=== PATIENT | female | born 1995 | race Caucasian/White ===

== ENCOUNTER 2017-03-06 11:33 | Emergency (ER) | payer OTHER ==
[2017-03-06 11:53] VITALS: BP 129/81; PULSE 82; RESP 18; TEMP 98.2; O2SAT 97
== END 2017-03-06 13:30 | disposition left against medical advice (07) ==
DX: Z53.21 Procedure and treatment not carried out due to patient leaving prior to being seen by health care provider (principal)

== ENCOUNTER 2017-03-06 13:56 | Emergency (ER) | payer OTHER ==
[2017-03-06 14:25] VITALS: O2SAT 98
[2017-03-06] MEDS ORDERED: ACETAMINOPHEN 500 MG TAB PO ONE (14:34)
--- NOTE | 2017-03-06 15:13 | EDPHY ---
H & P Time Seen by Provider: 03/06/17 14:22 HPI/ROS: This patient sustained an injury to her right foot mandible while the dog park yesterday afternoon when all large dog, excited to meet her jumped up toward her while she was bending down in slammed into the right mandible area. She reports that she has right-sided TMJ pain of moderate intensity that increases 8 /10 if she attempts to chew. She reports this pain extends to the angle of the mandible on the right side. She states that she prior to this accident has chronic TMJ pain of lesser intensity. She has associated tinnitus in the ear and generalized headache peak intensity 7/10. Her father drove her in by private vehicle for evaluation of her symptoms. She is concerned that she may have a fracture in her jaw. She took 400 mg of ibuprofen 9:45 a.m. the day of evaluation with mild improvement and notes no other exacerbating or alleviating factors. ROS: Neuro: She was not dazed from the injury. No LOC. No confusion. No focal numbness tingling weakness. No vision change. Musculoskeletal: No midline neck or back pain. GI: Mild nausea but no vomiting. 7 point ROS is otherwise negative. 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 She has tried a mouthpiece for this for potential bruxism but reported that it did seem to help. 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 HEENT: Is no external evidence of trauma on exam. No cranial tenderness other than mandible findings detailed below. Nose atraumatic. Ears: Clear bilaterally with no hemotympanum. Oropharynx: No dental trauma or malocclusion. No intraoral lacerations. The patient has right mandible tenderness perhaps slight swelling on the right side with no malocclusion. She also has tenderness the right TMJ with no overt crepitance. No ecchymosis. Eyes: Pupils are equal and reactive to light. Extraocular motions are intact. Optic fundi: Clear with no papilledema or hemorrhage. Neck: Trachea is midline with no stridor. The patient has no midline neck tenderness and retains a full range of motion without increase in pain. Lungs: Clear to auscultation bilaterally Cardiac: Regular rate and rhythm no murmur gallop or rub. Chest: Nontender. Abdomen: Soft nontender no organomegaly Back: Nontender Extremities: Atraumatic Neuro: GCS of 15. Cranial nerves II through XII intact. 2 out of 3 five- minute memory is intact. Cerebellar exam is normal as judged by symmetric rapid hand movements bilaterally. No pronator drift. No sensory or motor deficits are appreciated. Initial differential diagnosis: Mandible contusion, mandible fracture, TMJ strain Constitutional: Initial Vital Signs Temperature (C) 36.7 C 03/06/17 14:22 Heart Rate 71 03/06/17 14:22 Respiratory Rate 18 03/06/17 14:22 Blood Pressure 143/81 H 03/06/17 14:22 O2 Sat (%) 98 03/06/17 14:22 O2 Delivery Mode Room Air Allergies/Adverse Reactions: Sulfa (Sulfonamide Antibiotics) Allergy (Intermediate, Verified 03/06/17 14:20) Hives amoxicillin [Amoxicillin] Allergy (Unknown, Verified 03/06/17 14:20) as kid Home Medications: Medication Instructions Recorded Control 03/06/17 Citalopram [CeleXA] 20 mg PO 03/06/17 Methocarbamol [Robaxin 750 mg (*)] 750 - 1,500 mg PO QID PRN #20 tab 03/06/17 MDM/Departure - MDM Diagnostics: Mandible x-rays: Negative for fracture by my interpretation Imaging: I viewed and interpreted images myself Medications Given: Discontinued Medications Acetaminophen (Tylenol) 1,000 mg PO EDNOW ONE Stop: 03/06/17 14:35 Last Admin: 03/06/17 14:44 Dose: 1,000 mg ED Course/Re-evaluation: Discussion: Patient presents with findings of mandibular contusion-rule out fracture with x- ray, it and TMJ sprain/strain from blow to the right mandible yesterday. She is treated here with Tylenol. Will treat her with methocarbamol muscle relaxant in addition for pain if needed to the minimal suggest a soft diet and mouthpiece. Suggest that she follow up with ENT if she has any significant ongoing symptoms that persist beyond the next 5-7 days despite the treatment plan of ice, ibuprofen, Tylenol and methocarbamol. - Depart Disposition: Home, Routine, Self-Care Clinical Impression: Sprain and strain of temporomandibular joint Minor head injury without loss of consciousness Qualifiers: Encounter type: initial encounter Qualified Code(s): S09.90XA - Unspecified injury of head, initial encounter Condition: Good Instructions: Head Injury (ED), Temporomandibular Disorder (ED) Additional Instructions: Diagnoses: 1. Minor head injury 2. TMJ strain/sprain Plan: Ice 20 minutes at a time 3 times a day to the affected area. Ibuprofen and Tylenol for discomfort as needed Methocarbamol muscle relaxant in addition if needed Soft diet until her symptoms improved Return if he develops unbearable headache, vomiting more than twice, confusion or other concerns. Follow up with primary care physician for any ongoing symptoms despite the treatment plan or with the ENT physician listed below. Prescriptions: Methocarbamol [Robaxin 750 mg (*)] 750 - 1,500 mg PO QID PRN #20 tab PRN Reason: Muscle Spasms Referrals: Antonio Hu MD [Medical Doctor] - As per Instructions
[2017-03-06 15:25] VITALS: BP 126/85; PULSE 68; RESP 20; TEMP 98.2
== END 2017-03-06 15:25 | disposition home or self-care (01) ==
LOC: CED 13:56
DX: S03.40XA Sprain of jaw, unspecified side, initial encounter (principal); W23.0XXA Caught, crushed, jammed, or pinched between moving objects, initial encounter
CPT/HCPCS: 70110-PO

== ENCOUNTER 2018-03-15 14:28 | Emergency (ER) | payer OTHER ==
[2018-03-15] MEDS ORDERED: KETOROLAC 30 MG/1 ML SDV IVP ONE (14:44)
[2018-03-15] MEDS ORDERED: ONDANSETRON 4 MG/2 ML VIAL IVP ONE (14:45)
[2018-03-15] MEDS ORDERED: NS 1,000 ML IV ONE (14:45)
--- NOTE | 2018-03-15 14:45 | EDPHY ---
H & P Stated Complaint: PELVIC PAIN/HAD IUD PLACED 3 WKS AGO Time Seen by Provider: 03/15/18 14:39 HPI/ROS: CHIEF COMPLAINT: Pelvic cramping HISTORY OF PRESENT ILLNESS: The patient is a 22-year-old female who had an IUD placed by her primary 3 weeks ago. However since then she has had pelvic cramping that is intensified over the last day or two. No bleeding. No discharge. She has continued to have unprotected sex with her fiance. She had a negative test before it was placed. No urinary symptoms. Mild nausea with the pain but no vomiting. No diarrhea. No fever. She is sexually active with her fiance and no on else. No discharge. No concern for STD. Severity: Severe Modifying factors: Improved with Tylenol REVIEW OF SYSTEMS: Constitutional: denies: chills, fever, recent illness, recent injury EENTM: denies: blurred vision, double vision, nose congestion Respiratory: denies: cough, shortness of breath Cardiac: denies: chest pain, irregular heart rate, lightheadedness, palpitations Gastrointestinal/Abdominal: denies: abdominal pain, diarrhea, nausea, vomiting, blood streaked stools Genitourinary: See HPI Musculoskeletal: denies: joint pain, muscle pain Skin: denies: lesions, rash, jaundice, bruising Neurological: denies: headache, numbness, paresthesia, tingling, dizziness, weakness Hematologic/Lymphatic: denies: blood clots, easy bleeding, easy bruising Immunologic/allergic: denies: HIV/AIDS, transplant 10 systems reviewed and negative except as noted EXAM: GENERAL: Well-appearing, well-nourished and in no acute distress. HEAD: Atraumatic, normocephalic. EYES: Pupils equal round and reactive to light, extraocular movements intact, sclera anicteric, conjunctiva are normal. ENT: TMs normal, nares patent, oropharynx clear without exudates. Moist mucous membranes. NECK: Normal range of motion, supple without lymphadenopathy or JVD. LUNGS: Breath sounds clear to auscultation bilaterally and equal. No wheezes rales or rhonchi. HEART: Regular rate and rhythm without murmurs, rubs or gallops. ABDOMEN: Soft, nontender, normoactive bowel sounds. No guarding, no rebound. No masses appreciated. BACK: No CVA tenderness, no spinal tenderness, step-offs or deformities EXTREMITIES: Normal range of motion, no pitting or edema. No clubbing or cyanosis. NEUROLOGICAL: Cranial nerves II through XII grossly intact. Normal speech, normal gait. 5/5 strength, normal movement in all extremities, normal sensation , normal reflexes PSYCH: Normal mood, normal affect. SKIN: Warm, dry, normal turgor, no visible rashes or lesions. Source: Patient Exam Limitations: No limitations - Personal History LMP (Females 10-55): IUD In Place Current Tetanus Diphtheria and Acellular Pertussis (TDAP): Yes - Medical/Surgical History Hx Asthma: Yes Hx Chronic Respiratory Disease: No Hx Diabetes: No Hx Cardiac Disease: No Hx Renal Disease: No Hx Cirrhosis: No Hx Alcoholism: No Hx HIV/AIDS: No Hx Splenectomy or Spleen Trauma: No Other PMH: wisdom tooth extraction; PNA, asthma. anxiety, TMJ - Family History Significant Family History: No pertinent family hx - Social History Smoking Status: Never smoked Alcohol Use: Sober Drug Use: None Constitutional: Initial Vital Signs Temperature (C) 37 C 03/15/18 14:31 Heart Rate 96 03/15/18 14:31 Respiratory Rate 18 03/15/18 14:31 Blood Pressure 156/87 H 03/15/18 14:31 O2 Sat (%) 94 03/15/18 14:31 O2 Delivery Mode Room Air Allergies/Adverse Reactions: Sulfa (Sulfonamide Antibiotics) Allergy (Intermediate, Verified 03/15/18 14:29) Hives amoxicillin [Amoxicillin] Allergy (Unknown, Verified 03/15/18 14:29) as kid latex Allergy (Verified 03/15/18 14:30) Home Medications: Medication Instructions Recorded MIRENA 03/15/18 Medical Decision Making - Diagnostics Imaging Results: Imaging Impressions Pelvic/Renal Ultrasound 03/15/18 14:44 Impression: 1. IUD appears in good position. 2. Minimal free fluid in the pelvis. 2. No ovarian torsion. Findings and recommendations discussed with Emergency Department physician, ANGEL WATKINS at 15:39 hour, 03/15/2018. Final report concurs with initial preliminary interpretation. Imaging: Discussed imaging studies w/ machine scallop cutter Radiologist ED Course/Re-evaluation: Pelvic ultrasound and lab work is reassuring. Her abdominal exam is benign. She does have red white cells in her urine but denies having any dysuria or frequency etc. She thinks that she may have some cross over from her vaginal spotting which she states just started today. This would make sense with her increase in pelvic pain and cramping with the IUD now in place. We discussed options. Patient declines pelvic exam. She is not concerned for STD. She will follow up with her primary on Saturday. I did offer to prescribe her antibiotics in case she develops urinary symptoms but she declined. Differential Diagnosis: Partial list of the Differential diagnosis considered include but were not limited to; menses, IUD displacement, urinary tract infection, STD and although unlikely based on the history and physical exam, I also considered ectopic, ovarian cyst, appendicitis, hernia. I discussed these differential diagnoses and the plan with the patient as well as the usual and expected course. The patient understands that the diagnosis is provisional and that in medicine we are not always correct and that further workup is often warranted. Usual and customary warnings were given. All of the patient's questions were answered. The patient was instructed to return to the emergency department should the symptoms at all worsen or return, otherwise to followup with the physician as we discussed. - Data Points Laboratory Results: Laboratory Results 03/15/18 15:12 03/15/18 15:12 03/15/18 03/15/18 03/15/18 15:12 15:12 15:12 WBC 12.33 10^3/uL H 10^3/uL (3.80-9.50) RBC 5.29 10^6/uL 10^6/uL (4.18-5.33) Hgb 15.6 g/dL g/dL (12.6-16.3) Hct 44.8 % % (38.0-47.0) MCV 84.7 fL fL (81.5-99.8) MCH 29.5 pg pg (27.9-34.1) MCHC 34.8 g/dL g/dL (32.4-36.7) RDW 11.9 % % (11.5-15.2) Plt Count 262 10^3/uL 10^3/uL (150-400) MPV 9.5 fL fL (8.7-11.7) Neut % (Auto) 61.5 % % (39.3-74.2) Lymph % (Auto) 29.1 % % (15.0-45.0) [place] % (Auto) 5.0 % % (4.5-13.0) Eos % (Auto) 3.6 % % (0.6-7.6) Baso % (Auto) 0.6 % % (0.3-1.7) Nucleat RBC Rel Count 0.0 % % (0.0-0.2) Absolute Neuts (auto) 7.58 10^3/uL H 10^3/uL (1.70-6.50) Absolute Lymphs (auto) 3.59 10^3/uL H 10^3/uL (1.00-3.00) Absolute Monos (auto) 0.62 10^3/uL 10^3/uL (0.30-0.80) Absolute Eos (auto) 0.44 10^3/uL H 10^3/uL (0.03-0.40) Absolute Basos (auto) 0.07 10^3/uL 10^3/uL (0.02-0.10) Absolute Nucleated RBC 0.00 10^3/uL 10^3/uL (0-0.01) Immature Gran % 0.2 % % (0.0-1.1) Immature Gran # 0.03 10^3/uL 10^3/uL (0.00-0.10) Sodium 140 mEq/L mEq/L (135-145) Potassium 3.8 mEq/L mEq/L (3.3-5.0) Chloride 103 mEq/L mEq/L (97-110) Carbon Dioxide 27 mEq/l mEq/l (22-31) Anion Gap 10 mEq/L mEq/L (6-14) BUN 12 mg/dL mg/dL (7-23) Creatinine 0.6 mg/dL mg/dL (0.6-1.0) Estimated GFR > 60 Glucose 89 mg/dL mg/dL (70-100) Calcium 9.7 mg/dL mg/dL (8.5-10.4) Total Bilirubin 0.4 mg/dL mg/dL (0.1-1.4) Conjugated Bilirubin 0.1 mg/dL mg/dL (0.0-0.5) Unconjugated Bilirubin 0.3 mg/dL mg/dL (0.0-1.1) AST 23 IU/L IU/L (14-46) ALT 24 IU/L IU/L (9-52) Alkaline Phosphatase 92 IU/L IU/L (38-126) Total Protein 8.1 g/dL g/dL (6.3-8.2) Albumin 4.9 g/dL g/dL (3.5-5.0) Lipase 158 IU/L IU/L (23-300) Beta HCG, Qual NEGATIVE Urine Color Urine Appearance Urine pH Ur Specific [place] Urine Protein Urine Ketones Urine Blood Urine Nitrate Urine Bilirubin Urine Urobilinogen Ur Leukocyte Esterase Urine RBC Urine WBC Ur Epithelial Cells Urine Mucus Urine Glucose 03/15/18 15:00 WBC RBC Hgb Hct MCV MCH MCHC RDW Plt Count MPV Neut % (Auto) Lymph % (Auto) [place] % (Auto) Eos % (Auto) Baso % (Auto) Nucleat RBC Rel Count Absolute Neuts (auto) Absolute Lymphs (auto) Absolute Monos (auto) Absolute Eos (auto) Absolute Basos (auto) Absolute Nucleated RBC Immature Gran % Immature Gran # Sodium Potassium Chloride Carbon Dioxide Anion Gap BUN Creatinine Estimated GFR Glucose Calcium Total Bilirubin Conjugated Bilirubin Unconjugated Bilirubin AST ALT Alkaline Phosphatase Total Protein Albumin Lipase Beta HCG, Qual Urine Color YELLOW Urine Appearance HAZY Urine pH 7.0 (5.0-7.5) Ur Specific [place] 1.009 (1.002-1.030) Urine Protein 2+ H (NEGATIVE) Urine Ketones NEGATIVE (NEGATIVE) Urine Blood 3+ H (NEGATIVE) Urine Nitrate NEGATIVE (NEGATIVE) Urine Bilirubin NEGATIVE (NEGATIVE) Urine Urobilinogen NEGATIVE EU EU (0.2-1.0) Ur Leukocyte Esterase 1+ H (NEGATIVE) Urine RBC 10-15 /hpf H /hpf (0-3) Urine WBC 15-25 /hpf H /hpf (0-3) Ur Epithelial Cells TRACE /lpf /lpf (NONE-1+) Urine Mucus TRACE /lpf /lpf (NONE-1+) Urine Glucose NEGATIVE (NEGATIVE) Medications Given: Discontinued Medications Sodium Chloride (Ns) 1,000 mls @ 0 mls/hr IV EDNOW ONE; Wide Open PRN Reason: Protocol Stop: 03/15/18 14:46 Last Admin: 03/15/18 15:12 Dose: 1,000 mls Ketorolac Tromethamine (Toradol) 15 mg IVP EDNOW ONE Stop: 03/15/18 14:45 Last Admin: 03/15/18 15:11 Dose: 15 mg Ondansetron HCl (Zofran) 4 mg IVP EDNOW ONE Stop: 03/15/18 14:46 Last Admin: 03/15/18 15:10 Dose: 4 mg Departure - Departure Disposition: Home, Routine, Self-Care Clinical Impression: IUD (intrauterine device) in place Condition: Fair Instructions: Pelvic Pain (ED) Additional Instructions: Continue to take Tylenol or ibuprofen for pain. Follow up with doctor as previously arranged. Referrals: ODILIA BRADSHAW [Other] - 2-3 days, if not improved
[2018-03-15 15:24] LABS: PLATELET COUNT 262 10^3/uL (150-400)
[2018-03-15 15:55] VITALS: BP 143/84
== END 2018-03-15 15:54 | disposition home or self-care (01) ==
DX: R10.2 Pelvic and perineal pain (principal); E86.9 Volume depletion, unspecified; Z97.5 Presence of (intrauterine) contraceptive device
CPT/HCPCS: 96374; J1885; J2405

== ENCOUNTER 2018-05-16 06:40 | Emergency (ER) | payer OTHER ==
[2018-05-16] MEDS ORDERED: SKIN ADHESIVE (DERMABOND) 1 EACH TP ONE (07:05)
--- NOTE | 2018-05-16 07:05 | EDPHY ---
H & P Stated Complaint: Lac L index finger, Time Seen by Provider: 05/16/18 06:52 HPI/ROS: CHIEF COMPLAINT: Left index finger laceration HISTORY OF PRESENT ILLNESS: This is an immunocompetent 23-year-old female who cut the tip of her left index finger while using a bread knife earlier this morning. She has had difficulty controlling the bleeding, prompting her visit to the emergency department. She denies numbness or weakness. Her tetanus is current. REVIEW OF SYSTEMS: A ten system review of systems was performed and is negative with the exception of the items mentioned in the HPI. Recent cold symptoms Past medical history: Noncontributory Social history: She works at [employer] on [address] . No tobacco use. General Appearance: Alert. Vital signs reviewed. Focused exam performed. Respiratory: Lungs are clear to auscultation; no wheezes, rales, or rhonchi. Cardiovascular: Regular rate and rhythm; no murmur, rub, or gallop. Skin: Warm and dry, no rashes on exposed skin, normal color. Extremities: Crescentic shaped laceration distal left index finger laterally adjacent to the nail. No active bleeding at the time of my evaluation. Sensation intact to light touch over this finger. Full active range of motion at the MCP, PIP, and DI P of this finger. Pulse: 2 +left radial pulse. Neurological: Alert and oriented. Moving all four extremities easily and equally. Psychiatric: Normal affect. - Personal History LMP (Females 10-55): IUD In Place Current Tetanus Diphtheria and Acellular Pertussis (TDAP): Yes Tetanus Vaccine Date: 2016 - Medical/Surgical History Hx Asthma: Yes Hx Chronic Respiratory Disease: No Hx Diabetes: No Hx Cardiac Disease: No Hx Renal Disease: No Hx Cirrhosis: No Hx Alcoholism: No Hx HIV/AIDS: No Hx Splenectomy or Spleen Trauma: No Other PMH: wisdom tooth extraction; PNA, asthma. anxiety, TMJ - Social History Smoking Status: Never smoked Constitutional: Initial Vital Signs Temperature (C) 36.8 C 05/16/18 06:42 Heart Rate 106 H 05/16/18 06:42 Respiratory Rate 19 05/16/18 06:42 Blood Pressure 138/96 H 05/16/18 06:42 O2 Sat (%) 95 05/16/18 06:42 O2 Delivery Mode Room Air Allergies/Adverse Reactions: Sulfa (Sulfonamide Antibiotics) Allergy (Intermediate, Verified 05/16/18 06:42) Hives amoxicillin [Amoxicillin] Allergy (Unknown, Verified 05/16/18 06:42) as kid latex Allergy (Verified 05/16/18 06:42) Home Medications: Medication Instructions Recorded SHAUNA 03/15/18 Medical Decision Making Procedures: Procedure: Laceration repair. Verbal consent was obtained from the patient. The 3/4 cm crescentic laceration on the distal left index finger was not anesthetized. The wound was cleaned and explored. There were no deep structures involved. No tendon injury was identified. No nail injury. The wound was repaired with skin glue . The wound repair was simple . The procedure was performed by emergency department staff. ED Course/Re-evaluation: Distal left index finger laceration amenable to repair with skin glue. Tetanus up-to-date. No tendon or nail bed or other injuries. Neurovascular status intact. Departure - Departure Disposition: Home, Routine, Self-Care Clinical Impression: Laceration Condition: Good Instructions: Skin Adhesive Care (ED) Referrals: Patient,NotPresent [Primary Care Provider] - As per Instructions
[2018-05-16 07:32] VITALS: BP 145/97
== END 2018-05-16 07:30 | disposition home or self-care (01) ==
PROC: 0HQGXZZ Repair Left Hand Skin, External Approach (ICD-10-PCS; principal; 2018-05-16)
DX: S61.211A Laceration without foreign body of left index finger without damage to nail, initial encounter (principal); D84.9 Immunodeficiency, unspecified; W26.0XXA Contact with knife, initial encounter; Y92.9 Unspecified place or not applicable; Y93.G1 Activity, food preparation and clean up; Y99.9 Unspecified external cause status